=== PATIENT | male | born 1940 | race Caucasian/White ===

== ENCOUNTER 2018-10-19 12:37 | Inpatient (IN) | payer MEDICARE, OTHER ==
[~2018-10-19] VITALS: Ht 172.7 cm; Wt 104.4 kg
--- NOTE | 2018-10-19 12:40 | NUR ---
BREAK RN FOR PRIMARY ROMAIN RANDHAWA
--- NOTE | 2018-10-19 12:40 | NUR ---
BIB AMBULANCE FROM HOME, PT REPORTS "WOKE UP AT 0900, TOOK MY BLOOD PRESSURE LIKE NORMAL IT WAS HIGH 208/110 AND I'M HAVING CHEST PAIN ON BOTH SIDES AND AROUND TO MY BACK, I'VE HAD A TRIPLE BYPASS AND 4 CARDIAC STENTS." +NAUSEA AND EMESIS X1 UPON ARRIVAL TO ER. SR ON MONITOR. EKG COMPLETED. EMS UNABLE TO ESTABLISH IV ACCESS. 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 NO NITRO ADMIN BY EMS. RATES CP 10/10, RADIATING TO BACK. REPRODUCABLE TO PALPATION. CONT PULSE OX, BP, CARDIAC MONITORS APPLIED. VSS. CALL LIGHT IN REACH. FALL PRECAUTIONS IN PLACE. SIDE RAILS UPX2. RASHMI GUERRIER AT BEDSIDE FOR EVALUATION. AWAITING ORDERS.
[2018-10-19] MEDS ORDERED: ONDANSETRON 2MG/ML, 2ML IVPush ONE (13:00)
[2018-10-19] MEDS ORDERED: MORPHINE SULFATE 4 MG/ML, 1ML IVPush PRN (13:00)
[2018-10-19] MEDS ORDERED: SODIUM CHLORIDE FLUSH 10ML SYR IVF ONE (13:00)
--- NOTE | 2018-10-19 13:00 | NUR ---
EDTA AT BEDSIDE TO ATTEMPT IV START.
[2018-10-19] MEDS ORDERED: ONDANSETRON 2MG/ML, 2ML ONE (13:03)
[2018-10-19] MEDS ORDERED: MORPHINE SULFATE 4 MG/ML, 1ML ONE (13:04)
[2018-10-19 13:23] LABS: BASOPHILS # (AUTO) 0.04 x10^3/uL (0-0.1); BASOPHILS % (AUTO) 1 % (0-1); EOSINOPHILS # (AUTO) 0.18 x10^3/uL (0-0.4); EOSINOPHILS % (AUTO) 3 % (1-7); LYMPHOCYTES # (AUTO) 1.04 x10^3/uL (1-3.4); LYMPHOCYTES % (AUTO) 16 % (22-44); MD NO; MEAN CORPUSCULAR HEMOGLOBIN 29.4 pg (27.5-34.5); MEAN CORPUSCULAR HGB CONC 32.2 g/dL (33.2-36.2); MEAN CORPUSCULAR VOLUME 91.3 fL (81-97); MEAN PLATELET VOLUME 8.1 fL (7.4-10.4); MONOCYTES # (AUTO) 0.39 x10^3/uL (0.2-0.8); MONOCYTES % (AUTO) 6 % (2-9); NEUTROPHILS # (AUTO) 4.95 x10^3/uL (1.8-6.8); NEUTROPHILS % (AUTO) 75 % (42-75); PLATELET COUNT 199 x10^3/uL (130-400); RED BLOOD COUNT 5.89 x10^6/uL (4.38-5.82); RED CELL DISTRIBUTION WIDTH 15.1 % (9.4-14.8)
--- NOTE | 2018-10-19 13:32 | NUR ---
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 DISCUSSED WITH RASHMI GUERRIER, AWARE, AWAITING ADDITIONAL ORDERS. DISCUSSED BP, AWARE, NO ADDITIONAL ORDERS AT THIS TIME. TO MEDICATE FOR PAIN
[2018-10-19 13:34] LABS: ALBUMIN 3.9 g/dL (3.4-5.0); ANION GAP 7 mmol/L (5-15); CALCIUM 9.3 mg/dL (8.5-10.1); CHLORIDE 108 mmol/L (98-107)
[2018-10-19] MEDS ORDERED: ONDANSETRON ODT 4 MG ONE (13:36)
[2018-10-19 13:37] LABS: ALANINE AMINOTRANSFERASE 39 U/L (12-78); ALKALINE PHOSPHATASE 95 U/L (45-117); BILIRUBIN,TOTAL 1.5 mg/dL (0.2-1.0); TOTAL PROTEIN 8.6 g/dL (6.4-8.2); TROPONIN I < 0.015 ng/mL (0.000-0.045)
[2018-10-19] MEDS ORDERED: HYDROmorphone 2 MG/ML, 1ML ONE (13:37)
[2018-10-19] MEDS ORDERED: HYDROmorphone 2 MG/ML, 1ML IM STA (13:37)
--- NOTE | 2018-10-19 13:49 | NUR ---
PT MEDICATED NOTED PER RASHMI GUERRIER WITH 4MG ZOFRAN ODT AND 1MG DILAUDID IM FOR 10/10 CHEST PAIN. SR ON MONITOR. VSS. BP REMAINS ELEVATED, DISCUSSED WITH CHEY CARABALLO AWARE, NO NEW ORDERS RECEIVED. CALL LIGHT IN REACH. DENIES NEED TO USE RESTROOM
--- NOTE | 2018-10-19 14:07 | NUR ---
BEDSIDE REPORT AND CARE TO EDIS HOYOS. PT REPORTS PAIN IMPROVED TO 6/10, BP IMPROVING. VSS. SR ON MONITOR. PULSE OX 89-90% WHILE RESTING, 2L NC O2 APPLIED. PULSE OX 98%. CALL LIGHT IN REACH.
[2018-10-19] MEDS ORDERED: hydrALAzine 20 MG/ML, 1ML IV ONE (15:30)
--- NOTE | 2018-10-19 15:35 | NUR ---
Provided report to [phone] ROMAIN LANCASTER. Answered all questions. Pt having PIV placed and recieving meds, then is ready to transfer to floor.
[2018-10-19] MEDS ORDERED: hydrALAzine 20 MG/ML, 1ML ONE (15:40)
--- NOTE | 2018-10-19 15:59 | NUR ---
Did not adminster medication per EMAR for blood pressure due to pt's current blood pressure upon transfer from ED to floor. Please see vital signs charting.
[2018-10-19] MEDS ORDERED: hydrALAzine 20 MG/ML, 1ML IVPush PRN (16:00)
[2018-10-19] MEDS ORDERED: ACETAMINOPHEN 325 MG TABLET PO PRN (16:00)
[2018-10-19] MEDS ORDERED: ONDANSETRON 2MG/ML, 2ML IVPush PRN (16:00)
[2018-10-19] MEDS ORDERED: LABETALOL 5MG/ML, 20ML IVPush PRN (16:00)
[2018-10-19] MEDS ORDERED: ONDANSETRON ODT 4 MG PO PRN (16:00)
[2018-10-19] MEDS ORDERED: ENALAPRILAT 1.25 MG/ML, 2ML IVPush PRN (16:00)
[2018-10-19 16:18] VITALS: BP 145/79
[2018-10-19] MEDS ORDERED: INSU100I13 SQ (16:23)
[2018-10-19] MEDS ORDERED: INSU100I18 SQ (16:23)
[2018-10-19 16:28] LABS: TROPONIN I 0.018 ng/mL (0.000-0.045)
[2018-10-19] MEDS: HEPARIN 5,000 UNITS/ML, 1ML SQ SCH (17:04)
[2018-10-19] MEDS ORDERED: LISINOPRIL 20 MG TABLET PO ONE (17:30)
[2018-10-19] MEDS: INSULIN LISPRO 100 UNITS/ML, PEN SQ-INSULIN SCH ×2 (17:55→21:04)
[2018-10-19 20:26] VITALS: BP 105/71
[2018-10-19 22:29] LABS: TROPONIN I < 0.015 ng/mL (0.000-0.045)
[2018-10-20] MEDS: HEPARIN 5,000 UNITS/ML, 1ML SQ SCH ×3 (00:51→16:40)
[2018-10-20 00:55] VITALS: BP 119/75
[2018-10-20 05:38] LABS: BASOPHILS # (AUTO) 0.04 x10^3/uL (0-0.1); BASOPHILS % (AUTO) 1 % (0-1); EOSINOPHILS # (AUTO) 0.24 x10^3/uL (0-0.4); EOSINOPHILS % (AUTO) 3 % (1-7); LYMPHOCYTES # (AUTO) 1.44 x10^3/uL (1-3.4); LYMPHOCYTES % (AUTO) 20 % (22-44); MD NO; MONOCYTES # (AUTO) 0.82 x10^3/uL (0.2-0.8); MONOCYTES % (AUTO) 12 % (2-9); NEUTROPHILS # (AUTO) 4.58 x10^3/uL (1.8-6.8); NEUTROPHILS % (AUTO) 64 % (42-75); PLATELET COUNT 222 x10^3/uL (130-400); RED BLOOD COUNT 5.25 x10^6/uL (4.38-5.82); RED CELL DISTRIBUTION WIDTH 15.3 % (9.4-14.8)
[2018-10-20 05:44] LABS: ANION GAP 6 mmol/L (5-15); CALCIUM 8.6 mg/dL (8.5-10.1); CHLORIDE 107 mmol/L (98-107)
[2018-10-20 05:56] LABS: CREATININE 1.65 mg/dL (0.7-1.3)
[2018-10-20 08:09] VITALS: BP 134/80
[2018-10-20] MEDS: INSULIN LISPRO 100 UNITS/ML, PEN SQ-INSULIN SCH ×4 (08:14→21:35)
[2018-10-20] MEDS: DOXYCYCLINE 100MG TABLET PO SCH ×2 (08:16→21:57)
[2018-10-20] MEDS: CEFTRIAXONE PMX 1GM/50ML 50 ML IV SCH (08:38)
[2018-10-20] MEDS ORDERED: REGADENOSON 0.4 MG/5 ML SYRINGE ONE (08:48)
[2018-10-20] MEDS ORDERED: CHOL500050 PO (10:48)
[2018-10-20] MEDS ORDERED: ATOR40TA78 PO (10:48)
[2018-10-20] MEDS ORDERED: GABA300C10 PO (10:48)
[2018-10-20] MEDS ORDERED: METO25TA91 PO (10:48)
[2018-10-20] MEDS ORDERED: LISI2.5T PO (10:48)
[2018-10-20] MEDS ORDERED: ISOS30TA21 PO (10:48)
[2018-10-20] MEDS ORDERED: OMEP20CA14 PO (10:48)
[2018-10-20] MEDS ORDERED: MAGN420T PO (10:48)
[2018-10-20] MEDS ORDERED: TEMPLATE NON-FORMULARY MED. (Cholecalciferol (Vitamin D3)** (Vitamin D3**) 50,000 UNIT) PO SCH (12:00)
[2018-10-20 12:27] VITALS: BP 123/76
[2018-10-20] MEDS: ISOSORBIDE DINITRATE 30 MG TABLET PO SCH (12:29)
[2018-10-20] MEDS: OMEPRAZOLE 20 MG CAPSULE.DR PO SCH (12:29)
[2018-10-20] MEDS: LISINOPRIL 5 MG TABLET PO SCH (12:30)
[2018-10-20] MEDS: INSULIN ASPART 14 UNIT SQ SCH ×2 (12:32→16:00)
[2018-10-20 19:35] VITALS: BP 111/71
[2018-10-20] MEDS: INSULIN GLARGINE 100 UNITS/ML, PEN SQ-INSULIN SCH (21:56)
[2018-10-20] MEDS: GABAPENTIN 100 MG CAPSULE PO SCH (21:57)
[2018-10-20] MEDS: ATORVASTATIN 40 MG TABLET PO SCH (21:57)
[2018-10-21] MEDS: HEPARIN 5,000 UNITS/ML, 1ML SQ SCH ×3 (00:42→17:53)
[2018-10-21 00:44] VITALS: BP 109/66
[2018-10-21 05:58] VITALS: BP 103/67
[2018-10-21] MEDS: OMEPRAZOLE 20 MG CAPSULE.DR PO SCH (05:58)
[2018-10-21] MEDS: METOPROLOL SUCCINATE 25 MG TAB.ER.24H PO SCH (05:59)
[2018-10-21] MEDS: INSULIN ASPART 14 UNIT SQ SCH ×3 (07:00→16:00)
[2018-10-21] MEDS: INSULIN LISPRO 100 UNITS/ML, PEN SQ-INSULIN SCH ×4 (07:00→21:00)
[2018-10-21 07:47] LABS: ALBUMIN 3.2 g/dL (3.4-5.0); ANION GAP 6 mmol/L (5-15); CALCIUM 8.8 mg/dL (8.5-10.1); CHLORIDE 107 mmol/L (98-107)
[2018-10-21] MEDS: SODIUM CHLORIDE 0.9% 1,000 ML IV SCH ×2 (08:30→21:50)
[2018-10-21 09:14] VITALS: BP 110/72
[2018-10-21] MEDS: DOXYCYCLINE 100MG TABLET PO SCH ×2 (11:10→22:00)
[2018-10-21] MEDS: GABAPENTIN 100 MG CAPSULE PO SCH ×2 (11:11→22:00)
[2018-10-21] MEDS: ISOSORBIDE DINITRATE 30 MG TABLET PO SCH (11:11)
[2018-10-21] MEDS: MAGNESIUM OXIDE 400 MG TABLET PO SCH (11:11)
[2018-10-21] MEDS: LISINOPRIL 5 MG TABLET PO SCH (11:11)
[2018-10-21] MEDS: CEFTRIAXONE PMX 1GM/50ML 50 ML IV SCH (11:12)
[2018-10-21] MEDS: INSULIN GLARGINE 100 UNITS/ML, PEN SQ-INSULIN SCH ×2 (11:31→22:01)
[2018-10-21] MEDS ORDERED: SODIUM CHLORIDE 0.9%, 500ML IVBOLUS ONE (13:00)
[2018-10-21 16:23] LABS: ANION GAP 5 mmol/L (5-15); CALCIUM 8.4 mg/dL (8.5-10.1); CHLORIDE 108 mmol/L (98-107); CREATININE 2.13 mg/dL (0.7-1.3)
[2018-10-21 17:49] VITALS: BP 116/66
[2018-10-21 20:45] VITALS: BP 122/68
[2018-10-21 20:55] LABS: CREATININE,URINE RANDOM 95.4 mg/dL
[2018-10-21 21:02] VITALS: BP 127/70
[2018-10-21] MEDS: ATORVASTATIN 40 MG TABLET PO SCH (22:00)
[2018-10-22 01:21] VITALS: BP 137/76
[2018-10-22] MEDS: HEPARIN 5,000 UNITS/ML, 1ML SQ SCH ×2 (01:59→10:27)
[2018-10-22 05:47] LABS: BASOPHILS # (AUTO) 0.04 x10^3/uL (0-0.1); BASOPHILS % (AUTO) 1 % (0-1); EOSINOPHILS # (AUTO) 0.24 x10^3/uL (0-0.4); EOSINOPHILS % (AUTO) 4 % (1-7); LYMPHOCYTES # (AUTO) 1.35 x10^3/uL (1-3.4); LYMPHOCYTES % (AUTO) 24 % (22-44); MD NO; MEAN CORPUSCULAR HEMOGLOBIN 30.5 pg (27.5-34.5); MEAN CORPUSCULAR HGB CONC 33.4 g/dL (33.2-36.2); MEAN CORPUSCULAR VOLUME 91.2 fL (81-97); MONOCYTES # (AUTO) 0.58 x10^3/uL (0.2-0.8); MONOCYTES % (AUTO) 10 % (2-9); NEUTROPHILS # (AUTO) 3.42 x10^3/uL (1.8-6.8); NEUTROPHILS % (AUTO) 61 % (42-75); PLATELET COUNT 198 x10^3/uL (130-400); RED BLOOD COUNT 4.96 x10^6/uL (4.38-5.82); RED CELL DISTRIBUTION WIDTH 14.9 % (9.4-14.8)
[2018-10-22 05:52] VITALS: BP 120/80
[2018-10-22] MEDS: METOPROLOL SUCCINATE 25 MG TAB.ER.24H PO SCH (05:53)
[2018-10-22] MEDS: OMEPRAZOLE 20 MG CAPSULE.DR PO SCH (05:53)
[2018-10-22 05:55] LABS: CHLORIDE 110 mmol/L (98-107)
[2018-10-22 06:07] LABS: ANION GAP 6 mmol/L (5-15); CALCIUM 8.9 mg/dL (8.5-10.1); CREATININE 1.76 mg/dL (0.7-1.3)
[2018-10-22] MEDS: INSULIN ASPART 14 UNIT SQ SCH ×2 (07:00→11:00)
[2018-10-22] MEDS: INSULIN LISPRO 100 UNITS/ML, PEN SQ-INSULIN SCH ×2 (07:00→12:52)
[2018-10-22 07:48] VITALS: BP 131/77
[2018-10-22] MEDS: CEFTRIAXONE PMX 1GM/50ML 50 ML IV SCH (08:41)
[2018-10-22] MEDS: DOXYCYCLINE 100MG TABLET PO SCH (10:17)
[2018-10-22] MEDS: GABAPENTIN 100 MG CAPSULE PO SCH (10:17)
[2018-10-22] MEDS: ISOSORBIDE DINITRATE 30 MG TABLET PO SCH (10:17)
[2018-10-22] MEDS: LISINOPRIL 5 MG TABLET PO SCH (10:18)
[2018-10-22] MEDS: INSULIN GLARGINE 100 UNITS/ML, PEN SQ-INSULIN SCH (10:18)
[2018-10-22] MEDS: SODIUM CHLORIDE 0.9% 1,000 ML IV SCH (11:10)
[2018-10-22] MEDS ORDERED: CEFD300C37 PO (12:30)
[2018-10-22] MEDS ORDERED: ASPI-515 PO (12:30)
[2018-10-22] MEDS ORDERED: AZIT500T PO (12:30)
[2018-10-22] MEDS ORDERED: MAGN400T26 PO (12:34)
[2018-10-22] MEDS: MAGNESIUM OXIDE 400 MG TABLET PO SCH (12:52)
[2018-10-22 14:00] VITALS: BP 124/72
== END 2018-10-22 14:55 | disposition home or self-care (01) | DRG 177 ==
LOC: ED 15:14 → EDIP 15:15 → ED 15:54 → 5SO 16:18 → 3NE 10-21 21:02 → DCLOUNGE 10-22 14:44
PROVIDERS: ADMIT Hospitalist; ATTEND Hospitalist
DX: J15.6 Pneumonia due to other Gram-negative bacteria (principal); N17.0 Acute kidney failure with tubular necrosis; J96.01 Acute respiratory failure with hypoxia; I50.30 Unspecified diastolic (congestive) heart failure; J98.11 Atelectasis; E11.9 Type 2 diabetes mellitus without complications; E78.5 Hyperlipidemia, unspecified; I11.0 Hypertensive heart disease with heart failure; I25.10 Atherosclerotic heart disease of native coronary artery without angina pectoris; K21.9 Gastro-esophageal reflux disease without esophagitis; Z79.4 Long term (current) use of insulin; Z80.3 Family history of malignant neoplasm of breast; Z90.49 Acquired absence of other specified parts of digestive tract; I25.2 Old myocardial infarction; Z95.1 Presence of aortocoronary bypass graft; Z95.5 Presence of coronary angioplasty implant and graft
CPT/HCPCS: 36415; 71045; 76770; 78452; 80048; 80053; 82040; 82436; 82570; 82962; 83735; 84133; 84156; 84300; 84443; 84484; 85025; 93005; 93017; 96372; 96374; C8929; G0378; J0696; J1170; J1644; J2405; J2785; Q9957; A9502; C9898; J1815; J7040

== ENCOUNTER 2018-12-01 09:02 | Inpatient (IN) | payer MEDICAID, MEDICARE, OTHER ==
[~2018-12-01] VITALS: Ht 172.7 cm; Wt 107.5 kg
[~2018-12-01 09:02] MED LIST: ASPI-515 PO; ATOR40TA78 PO; AZIT500T PO; CEFD300C37 PO; CHOL500050 PO; GABA300C10 PO; INSU100I13 SQ; INSU100I18 SQ; ISOS30TA21 PO; LISI2.5T PO; MAGN400T26 PO; MAGN420T PO; METO25TA91 PO; OMEP20CA14 PO
--- NOTE | 2018-12-01 09:21 | NUR ---
PT TRANSFERRED TO [facility] FROM [place] FOR ERCP. PT STATES INITIALLY WENT TO [facility] FOR N/V AND WAS DIAGNOSED WITH GALLSTONES YESTERDAY DURING ER VISIT. PT CONNECTED TO MONITORS. VSS. IV IN PLACE UPON ARRIVAL. PT DENIES PAIN, N/V AT THIS TIME. EDMD PRESENT FOR ASSESSMENT. AWAITING ORDERS.
[2018-12-01] MEDS ORDERED: SODIUM CHLORIDE FLUSH 10ML SYR IVF ONE (09:30)
--- NOTE | 2018-12-01 09:42 | NUR ---
pt states has been npo since wednesday evening and began vomiting early wednesday morning. vss. no needse expressed. awaiting room assignment.
[2018-12-01 09:48] LABS: BASOPHILS # (AUTO) 0.11 x10^3/uL (0-0.1); BASOPHILS % (AUTO) 1 % (0-1); EOSINOPHILS # (AUTO) 0.15 x10^3/uL (0-0.4); EOSINOPHILS % (AUTO) 2 % (1-7); LYMPHOCYTES # (AUTO) 1.14 x10^3/uL (1-3.4); LYMPHOCYTES % (AUTO) 14 % (22-44); MD NO; MEAN CORPUSCULAR HEMOGLOBIN 29.9 pg (27.5-34.5); MEAN CORPUSCULAR HGB CONC 32.5 g/dL (33.2-36.2); MEAN CORPUSCULAR VOLUME 91.9 fL (81-97); MEAN PLATELET VOLUME 7.8 fL (7.4-10.4); MONOCYTES # (AUTO) 0.72 x10^3/uL (0.2-0.8); MONOCYTES % (AUTO) 9 % (2-9); NEUTROPHILS # (AUTO) 5.95 x10^3/uL (1.8-6.8); NEUTROPHILS % (AUTO) 74 % (42-75); PLATELET COUNT 176 x10^3/uL (130-400); RED BLOOD COUNT 5.12 x10^6/uL (4.38-5.82); RED CELL DISTRIBUTION WIDTH 15.1 % (9.4-14.8)
[2018-12-01 09:58] LABS: ALANINE AMINOTRANSFERASE 41 U/L (12-78); ALBUMIN 3.2 g/dL (3.4-5.0); ANION GAP 6 mmol/L (5-15); CALCIUM 8.5 mg/dL (8.5-10.1); CHLORIDE 106 mmol/L (98-107); CREATININE 1.41 mg/dL (0.7-1.3)
[2018-12-01] MEDS ORDERED: PLEASE ENTER HEIGHT AND WEIGHT MC SCH (10:00)
[2018-12-01 10:02] LABS: ALKALINE PHOSPHATASE 78 U/L (45-117); BILIRUBIN,TOTAL 3.4 mg/dL (0.2-1.0); TOTAL PROTEIN 7.1 g/dL (6.4-8.2); TROPONIN I < 0.015 ng/mL (0.000-0.045)
[2018-12-01 10:10] LABS: INTERNATIONAL NORMALIZED RATIO 1.05 (0.93-1.1)
--- NOTE | 2018-12-01 10:12 | NUR ---
PT RESTING IN ROOM. VSS. NO NEEDS EXPRESSED. CALL LIGHT WITHIN REACH. AWAITING ROOM ASSIGNMENT.
--- NOTE | 2018-12-01 10:32 | NUR ---
PT PROVIDED UA SAMPLE WHILE SITTING EOB. PT STATES DIZZINESS WHILE SITTING UP. PT EDUCATED ON FALL RISKS AND INSTRUCTED NOT TO GET UP WITHOUT ASSISTANCE. PT AGREES. VSS THROUGHTOUT. UA COLLECTED AND SENT. NO OTHER REQUESTS AT THIS TIME. AWAITING RESUTLS, US AND OOM ASSIGNMENT.
[2018-12-01 10:45] LABS: MICROSCOPIC NOT IND
[2018-12-01 10:47] LABS: CULTURE INDICATED? NO
--- NOTE | 2018-12-01 11:19 | NUR ---
PT RESTING IN ROOM. VSS. NO NEEDS EXPRESSED. CALL LIGHT WITHIN REACH. AWAITING US RESULTS AND ROOM ASSIGNMENT.
--- NOTE | 2018-12-01 12:15 | NUR ---
SURGEON TO BS FOR ASSESSMENT.
[2018-12-01] MEDS ORDERED: SODIUM CHLORIDE 0.9% 1,000 ML IV ONE (12:19)
[2018-12-01] MEDS ORDERED: SODIUM CHLORIDE FLUSH 10ML SYR IVF PRN (12:30)
[2018-12-01] MEDS ORDERED: CEFOTETAN PMX 1GM/50ML 50 ML ONE (12:30)
[2018-12-01] MEDS ORDERED: CEFOTETAN PMX 1GM/50ML 50 ML IV ONE (12:30)
--- NOTE | 2018-12-01 12:35 | NUR ---
PT RESTING IN ROOM. VSS. IFV AND ABS INFUSING AT THIS TIME. NO NEEDS REQUESTED. CALL LIGHT WITHIN REACH. AWAITING ROOM ASSIGNMENT.
[2018-12-01] MEDS: SODIUM CHLORIDE 0.9% 1,000 ML IV SCH (12:53)
[2018-12-01] MEDS ORDERED: hydrALAzine 20 MG/ML, 1ML IVPush PRN (13:00)
[2018-12-01] MEDS ORDERED: DOCUSATE 100 MG CAPSULE PO PRN (13:00)
[2018-12-01] MEDS ORDERED: ONDANSETRON 2MG/ML, 2ML IVPush PRN (13:00)
[2018-12-01] MEDS ORDERED: LABETALOL 5MG/ML, 20ML IVPush PRN (13:00)
[2018-12-01 13:55] VITALS: BP 139/86
[2018-12-01] MEDS: CEFTRIAXONE PMX 1GM/50ML 50 ML IV SCH (16:06)
[2018-12-01] MEDS: METRONIDAZOLE PMX 500MG/100ML 100 ML IV SCH (16:30)
[2018-12-01 18:29] VITALS: BP 153/89
[2018-12-01] MEDS: INSULIN LISPRO 100 UNITS/ML, PEN SQ-INSULIN SCH (22:19)
[2018-12-01] MEDS: ATORVASTATIN 40 MG TABLET PO SCH (22:19)
[2018-12-01] MEDS: GABAPENTIN 100 MG CAPSULE PO SCH (22:24)
[2018-12-01] MEDS: MAGNESIUM OXIDE 400 MG TABLET PO SCH (22:24)
[2018-12-01] MEDS: morphine SULFATE 10 MG/ML, 1ML IVPush PRN (22:33)
[2018-12-02] MEDS: METRONIDAZOLE PMX 500MG/100ML 100 ML IV SCH ×3 (00:44→15:57)
[2018-12-02 01:17] VITALS: BP 99/58
[2018-12-02 05:37] LABS: CHLORIDE 107 mmol/L (98-107)
[2018-12-02 05:43] LABS: BASOPHILS # (AUTO) 0.03 x10^3/uL (0-0.1); BASOPHILS % (AUTO) 1 % (0-1); EOSINOPHILS # (AUTO) 0.34 x10^3/uL (0-0.4); EOSINOPHILS % (AUTO) 5 % (1-7); LYMPHOCYTES # (AUTO) 1.28 x10^3/uL (1-3.4); LYMPHOCYTES % (AUTO) 21 % (22-44); MD NO; MEAN CORPUSCULAR HEMOGLOBIN 30.3 pg (27.5-34.5); MEAN CORPUSCULAR VOLUME 94.5 fL (81-97); MEAN PLATELET VOLUME 8.1 fL (7.4-10.4); MONOCYTES # (AUTO) 0.63 x10^3/uL (0.2-0.8); MONOCYTES % (AUTO) 10 % (2-9); NEUTROPHILS # (AUTO) 3.94 x10^3/uL (1.8-6.8); NEUTROPHILS % (AUTO) 63 % (42-75); PLATELET COUNT 164 x10^3/uL (130-400); RED BLOOD COUNT 4.99 x10^6/uL (4.38-5.82); RED CELL DISTRIBUTION WIDTH 14.6 % (9.4-14.8)
[2018-12-02 05:49] LABS: ANION GAP 7 mmol/L (5-15); CALCIUM 8.3 mg/dL (8.5-10.1); CREATININE 1.31 mg/dL (0.7-1.3)
[2018-12-02] MEDS: SODIUM CHLORIDE 0.9% 1,000 ML IV SCH (05:56)
[2018-12-02 06:45] VITALS: BP 94/57
[2018-12-02] MEDS: morphine SULFATE 10 MG/ML, 1ML IVPush PRN (06:49)
[2018-12-02] MEDS: INSULIN LISPRO 100 UNITS/ML, PEN SQ-INSULIN SCH ×4 (06:49→21:47)
[2018-12-02] MEDS: MAGNESIUM OXIDE 400 MG TABLET PO SCH ×2 (08:41→21:47)
[2018-12-02] MEDS: GABAPENTIN 100 MG CAPSULE PO SCH ×2 (08:41→21:47)
[2018-12-02] MEDS: OMEPRAZOLE 20 MG CAPSULE.DR PO SCH (08:41)
[2018-12-02 12:16] VITALS: BP 109/57
[2018-12-02] MEDS: CEFTRIAXONE PMX 1GM/50ML 50 ML IV SCH (13:13)
[2018-12-02] MEDS ORDERED: HYDROmorphone 2 MG/ML, 1ML IVPush PRN (15:30)
[2018-12-02] MEDS ORDERED: FENTANYL PF 100 MCG/2ML IV PRN (15:30)
[2018-12-02] MEDS ORDERED: ONDANSETRON 2MG/ML, 2ML IV PRN (15:30)
[2018-12-02] MEDS ORDERED: hydrALAzine 20 MG/ML, 1ML IV PRN (15:30)
[2018-12-02] MEDS ORDERED: OXYcodone 5 MG/5 ML ORAL.SOL UDC PO PRN (15:30)
[2018-12-02] MEDS ORDERED: PROMETHAZINE 25 MG/ML, 1ML IV PRN (15:30)
[2018-12-02] MEDS ORDERED: LABETALOL 5MG/ML, 20ML IV PRN (15:30)
[2018-12-02] MEDS ORDERED: BUPIVACAINE/EPI 0.5% 1:200K ONE (15:45)
[2018-12-02] MEDS ORDERED: FENTANYL PF 250 MCG/5ML ONE (16:00)
[2018-12-02] MEDS ORDERED: DEXAMETHASONE 4 MG/ML, 1ML ONE (16:47)
[2018-12-02] MEDS ORDERED: CEFOTETAN 2 GM ONE (16:48)
[2018-12-02] MEDS ORDERED: ROCURONIUM 10MG/ML,5ML ONE (17:07)
[2018-12-02] MEDS ORDERED: SUCCINYLCHOLINE 20 MG/ML, 10ML ONE (17:07)
[2018-12-02] MEDS ORDERED: PROPOFOL 10 MG/ML, 20ML ONE (17:07)
[2018-12-02] MEDS ORDERED: METOPROLOL 1 MG/ML, 5ML ONE (17:07)
[2018-12-02] MEDS ORDERED: hydrALAzine 20 MG/ML, 1ML ONE (17:51)
[2018-12-02] MEDS ORDERED: PROMETHAZINE 25 MG/ML, 1ML ONE (18:02)
[2018-12-02] MEDS ORDERED: FENTANYL PF 100 MCG/2ML ONE (18:06)
[2018-12-02] MEDS ORDERED: HYDROmorphone 2 MG/ML, 1ML ONE (18:07)
[2018-12-02] MEDS: IBUPROFEN 200 MG TABLET PO SCH (19:00)
[2018-12-02] MEDS: ACETAMINOPHEN 500 MG TABLET PO SCH (20:31)
[2018-12-02] MEDS: OXYcodone 5 MG/5 ML ORAL.SOL UDC PO PRN (20:32)
[2018-12-02] MEDS: ATORVASTATIN 40 MG TABLET PO SCH (21:47)
[2018-12-03 00:04] VITALS: BP 137/80
[2018-12-03] MEDS: METRONIDAZOLE PMX 500MG/100ML 100 ML IV SCH ×2 (01:09→08:53)
[2018-12-03] MEDS: ACETAMINOPHEN 500 MG TABLET PO SCH ×4 (03:12→21:00)
[2018-12-03] MEDS: OXYcodone 5 MG/5 ML ORAL.SOL UDC PO PRN (06:42)
[2018-12-03 07:20] VITALS: BP 147/83
[2018-12-03] MEDS: INSULIN LISPRO 100 UNITS/ML, PEN SQ-INSULIN SCH ×4 (07:25→21:05)
[2018-12-03] MEDS: OMEPRAZOLE 20 MG CAPSULE.DR PO SCH (07:41)
[2018-12-03] MEDS: GABAPENTIN 100 MG CAPSULE PO SCH ×2 (07:41→21:05)
[2018-12-03] MEDS: MAGNESIUM OXIDE 400 MG TABLET PO SCH ×2 (07:41→21:06)
[2018-12-03] MEDS: IBUPROFEN 200 MG TABLET PO SCH ×3 (07:42→17:00)
[2018-12-03 08:33] LABS: ALBUMIN 3.1 g/dL (3.4-5.0); CALCIUM 8.9 mg/dL (8.5-10.1); CHLORIDE 102 mmol/L (98-107)
[2018-12-03 08:37] LABS: ALANINE AMINOTRANSFERASE 55 U/L (12-78); ALKALINE PHOSPHATASE 70 U/L (45-117); CREATININE 1.51 mg/dL (0.7-1.3); TOTAL PROTEIN 7.4 g/dL (6.4-8.2)
[2018-12-03 08:41] LABS: ANION GAP 8 mmol/L (5-15)
[2018-12-03] MEDS: ENOXAPARIN 40 MG/0.4 ML SQ SCH (08:53)
[2018-12-03] MEDS: metroNIDAZOLE 500 MG TABLET PO SCH ×4 (10:30→22:18)
[2018-12-03 18:39] VITALS: BP 165/85
[2018-12-03] MEDS: CIPROFLOXACIN 500 MG TABLET PO SCH (21:00)
[2018-12-03] MEDS: ATORVASTATIN 40 MG TABLET PO SCH (21:06)
[2018-12-04 00:33] VITALS: BP 132/91
[2018-12-04] MEDS: ACETAMINOPHEN 500 MG TABLET PO SCH ×4 (02:47→19:06)
[2018-12-04 06:25] LABS: ANION GAP 4 mmol/L (5-15); CALCIUM 8.9 mg/dL (8.5-10.1); CHLORIDE 104 mmol/L (98-107); CREATININE 1.54 mg/dL (0.7-1.3)
[2018-12-04 07:45] VITALS: BP 151/76
[2018-12-04] MEDS: INSULIN LISPRO 100 UNITS/ML, PEN SQ-INSULIN SCH ×4 (07:51→22:47)
[2018-12-04] MEDS: GABAPENTIN 100 MG CAPSULE PO SCH ×2 (07:51→22:45)
[2018-12-04] MEDS: OMEPRAZOLE 20 MG CAPSULE.DR PO SCH (07:52)
[2018-12-04] MEDS: MAGNESIUM OXIDE 400 MG TABLET PO SCH ×2 (07:52→22:45)
[2018-12-04] MEDS: IBUPROFEN 200 MG TABLET PO SCH ×3 (07:52→16:19)
[2018-12-04] MEDS: ENOXAPARIN 40 MG/0.4 ML SQ SCH (07:52)
[2018-12-04] MEDS: metroNIDAZOLE 500 MG TABLET PO SCH ×3 (07:52→22:45)
[2018-12-04] MEDS: CIPROFLOXACIN 500 MG TABLET PO SCH ×2 (07:52→22:45)
[2018-12-04] MEDS ORDERED: FUROSEMIDE 40 MG/4 ML IV ONE (08:30)
[2018-12-04] MEDS ORDERED: INSULIN GLARGINE 100 UNITS/ML, PEN SQ-INSULIN SCH (11:00)
[2018-12-04] MEDS: INSULIN GLARGINE 100 UNITS/ML, PEN SQ-INSULIN SCH ×2 (11:03→22:49)
[2018-12-04 13:25] VITALS: BP 102/57
[2018-12-04 19:06] VITALS: BP 160/70
[2018-12-04] MEDS: ATORVASTATIN 40 MG TABLET PO SCH (22:45)
[2018-12-05] VITALS (8 sets, daily range): BP systolic 99–145; BP diastolic 66–92
[2018-12-05] MEDS: ACETAMINOPHEN 500 MG TABLET PO SCH ×5 (00:14→23:43)
[2018-12-05 05:59] LABS: ANION GAP 4 mmol/L (5-15); CALCIUM 8.9 mg/dL (8.5-10.1); CHLORIDE 102 mmol/L (98-107)
[2018-12-05 06:02] LABS: CREATININE 1.32 mg/dL (0.7-1.3)
[2018-12-05] MEDS: metroNIDAZOLE 500 MG TABLET PO SCH (08:10)
[2018-12-05] MEDS: GABAPENTIN 100 MG CAPSULE PO SCH ×2 (08:10→21:32)
[2018-12-05] MEDS: CIPROFLOXACIN 500 MG TABLET PO SCH (08:10)
[2018-12-05] MEDS: OMEPRAZOLE 20 MG CAPSULE.DR PO SCH (08:10)
[2018-12-05] MEDS: MAGNESIUM OXIDE 400 MG TABLET PO SCH ×2 (08:10→21:32)
[2018-12-05] MEDS: INSULIN LISPRO 100 UNITS/ML, PEN SQ-INSULIN SCH ×4 (08:11→21:00)
[2018-12-05] MEDS: IBUPROFEN 200 MG TABLET PO SCH (08:12)
[2018-12-05] MEDS: ENOXAPARIN 40 MG/0.4 ML SQ SCH (08:12)
[2018-12-05] MEDS: INSULIN GLARGINE 100 UNITS/ML, PEN SQ-INSULIN SCH ×2 (08:12→21:34)
[2018-12-05] MEDS ORDERED: SODIUM CHLORIDE 0.9% 500 ML IV SCH (14:30)
[2018-12-05] MEDS: ATORVASTATIN 40 MG TABLET PO SCH (21:32)
[2018-12-06 02:24] VITALS: BP 147/82
[2018-12-06 05:14] LABS: ANION GAP 6 mmol/L (5-15); CALCIUM 8.9 mg/dL (8.5-10.1); CHLORIDE 103 mmol/L (98-107)
[2018-12-06 05:25] LABS: CREATININE 1.24 mg/dL (0.7-1.3)
[2018-12-06] MEDS: ACETAMINOPHEN 500 MG TABLET PO SCH ×2 (05:34→12:00)
[2018-12-06 07:23] VITALS: BP 120/71
[2018-12-06] MEDS: INSULIN GLARGINE 100 UNITS/ML, PEN SQ-INSULIN SCH (07:49)
[2018-12-06] MEDS: INSULIN LISPRO 100 UNITS/ML, PEN SQ-INSULIN SCH ×2 (07:49→11:35)
[2018-12-06] MEDS: GABAPENTIN 100 MG CAPSULE PO SCH (07:50)
[2018-12-06] MEDS: OMEPRAZOLE 20 MG CAPSULE.DR PO SCH (07:50)
[2018-12-06] MEDS: MAGNESIUM OXIDE 400 MG TABLET PO SCH (07:50)
[2018-12-06 08:46] VITALS: BP 130/79
[2018-12-06 08:47] VITALS: BP 120/70
[2018-12-06 08:48] VITALS: BP 126/71
[2018-12-06] MEDS ORDERED: ACET500T71 PO (09:02)
[2018-12-06] MEDS: ENOXAPARIN 40 MG/0.4 ML SQ SCH (10:09)
[2018-12-06 12:57] VITALS: BP 148/82
== END 2018-12-06 14:59 | disposition home or self-care (01) | DRG 417 ==
LOC: ED 09:41 → EDIP 12:19 → 4NOR 13:49
PROVIDERS: ADMIT Internal Medicine; ATTEND Internal Medicine
PROC: 0FT44ZZ Resection of Gallbladder, Percutaneous Endoscopic Approach (ICD-10-PCS; principal; 2018-12-02 16:45)
DX: K80.00 Calculus of gallbladder with acute cholecystitis without obstruction (principal); J96.01 Acute respiratory failure with hypoxia; N17.9 Acute kidney failure, unspecified; I13.0 Hypertensive heart and chronic kidney disease with heart failure and stage 1 through stage 4 chronic kidney disease, or unspecified chronic kidney disease; I50.32 Chronic diastolic (congestive) heart failure; J91.8 Pleural effusion in other conditions classified elsewhere; I25.10 Atherosclerotic heart disease of native coronary artery without angina pectoris; E86.0 Dehydration; I95.1 Orthostatic hypotension; K21.9 Gastro-esophageal reflux disease without esophagitis; E66.9 Obesity, unspecified; K44.9 Diaphragmatic hernia without obstruction or gangrene; Z77.22 Contact with and (suspected) exposure to environmental tobacco smoke (acute) (chronic); N18.9 Chronic kidney disease, unspecified; E11.22 Type 2 diabetes mellitus with diabetic chronic kidney disease; I25.2 Old myocardial infarction; Z95.1 Presence of aortocoronary bypass graft; Z95.5 Presence of coronary angioplasty implant and graft; Z79.4 Long term (current) use of insulin; Z83.3 Family history of diabetes mellitus; Z87.01 Personal history of pneumonia (recurrent); Z90.49 Acquired absence of other specified parts of digestive tract; Z88.8 Allergy status to other drugs, medicaments and biological substances; Z68.36 Body mass index [BMI] 36.0-36.9, adult
CPT/HCPCS: 36415; 71045; 71046; 74181; 76700; 80048; 80053; 81003; 82533; 82962; 83690; 83880; 84443; 84484; 85025; 85610; 85730; 88304; 93005; 99285; G0378; J0696; J1100; J1170; J1650; J1940; J2550; J2704; J3010; J0330; J0360; J1815; J2270; J3490; J7030; J7040